=== PATIENT | male | born 1945 | race Caucasian/White ===

== ENCOUNTER 2023-12-04 20:51 | Inpatient (IN) | payer MEDICARE ==
[2023-12-04 22:10] VITALS: BMI 29.0
[2023-12-04] MEDS ORDERED: Ondansetron ODT 4 MG TAB PO PRN (23:30)
[2023-12-04] MEDS ORDERED: Electrolyte Replacement Protocol 1 EACH FS SCH (23:30)
[2023-12-04] MEDS ORDERED: Lorazepam 2 MG/ML VIAL IM PRN (23:30)
[2023-12-04] MEDS ORDERED: Ondansetron PF 4 MG/2 ML Vial IVP PRN (23:32)
[2023-12-04] MEDS ORDERED: Acetaminophen 650 MG Suppository PR PRN (23:32)
[2023-12-05 00:20] LABS: Amphetamine Not Detected (NotDetected); Barbiturates Screen Not Detected (NotDetected); Benzodiazepine Screen Not Detected (NotDetected); Cocaine Metabolite Screen Not Detected (NotDetected); Methadone Not Detected (NotDetected); Methamphetamine Not Detected (NotDetected); Opiate Screen Not Detected (NotDetected); Oxycodone Screen Not Detected (NotDetected); Phencyclidine (PCP) Not Detected (NotDetected); THC/Cannabinoid Screen Not Detected (NotDetected); Tricyclic Screen Not Detected (NotDetected)
[2023-12-05] MEDS: Thiamine HCl 200 MG/2 ML VIAL SLOW IVP SCH (00:25)
[2023-12-05] MEDS: Lorazepam 1 MG TAB PO SCH (00:25)
[2023-12-05] MEDS: Multivitamins, Adult 10 ML, Folic Acid 1 MG, Thiamine HCl 100 MG, Admixture Fee 1 EACH ... IV SCH (00:42)
[2023-12-05 03:02] LABS: ALT (SGPT) 79 U/L (8-55); AST (SGOT) 116 U/L (5-34); Albumin 3.4 g/dL (3.4-4.8); Alkaline Phosphatase 91 U/L (40-110); Anion Gap 15 mmol/L (10-20); BUN (Urea Nitrogen) 8 mg/dL (8.4-25.7); Bilirubin, Total 1.6 mg/dL (0.2-1.2); Calc. Creatinine Clearance 79 mL/min (70-130); Calcium 7.9 mg/dL (7.8-10.44); Carbon Dioxide 22 mmol/L (23-31); Chloride 106 mmol/L (98-107); Estimated GFR 77; Glucose 92 mg/dL (83-110); Potassium 4.1 mmol/L (3.5-5.1); Protein, Total 6.4 g/dL (5.8-8.1); Sodium 139 mmol/L (136-145)
[2023-12-05 03:04] LABS: Troponin I 0.019 ng/mL (< 0.028)
[2023-12-05 03:18] LABS: #Basophils 0.03 10x3/uL (0.0-0.2); #Eosinphils Less than 0.03 10x3/uL (0.0-0.7); %Basophils 0.7 % (0.0-1.0); %Lymphocytes 21.4 % (21.0-51.0); %Neutrophils 65.7 % (42.0-75.0); Hematocrit 39.2 % (42.0-52.0); Hemoglobin 13.9 g/dL (14.0-18.0); Mean Corpuscular HGB CONC 35.5 g/dL (32.0-36.0); Mean Corpuscular Hemoglobin 39.8 pg (27.0-31.0); Mean Corpuscular Volume 112.3 fL (78.0-98.0); Mean Platelet Volume 9.1 fL (7.4-10.4); Platelet Count 159 10x3/uL (130-400); RBC Distribution Width 14.4 % (11.5-14.5); Red Blood Cell (RBC) Count 3.49 mill/uL (4.70-6.10)
[2023-12-05 03:21] LABS: Macrocytosis SLIGHT = 6-15 cells HPF (0-5); Platelet Adequacy Comment Platelets Normal
[2023-12-05 03:23] LABS: HBCM Index 0.07 S/CO (0-0.79); HBsAg Index 0.48 S/CO (0-0.99); Hep A IgM AB NONREACTIVE (NonReactive); Hep A IgM S/CO 0.15 S/CO (0-0.79); Hep B Surf Ag NONREACTIVE S/CO (NonReactive); Hep C IgG Ab NONREACTIVE S/CO (NonReactive); Hep C Index 0.12 S/CO (0-0.79); Hepatitis B Core IgM Abs NONREACTIVE S/CO (NonReactive)
[2023-12-05] MEDS: Metoprolol Tartrate 5 MG (5 mL) VIAL IVP PRN (05:15)
[2023-12-05] MEDS: Folic Acid 1 MG TAB PO SCH (09:48)
[2023-12-05] MEDS: Enoxaparin 40 MG (0.4 mL) SYRINGE SC SCH (09:48)
[2023-12-05] MEDS: Multivit, Therapeutic 1 TAB PO SCH (09:48)
[2023-12-05] MEDS: Acetaminophen 325 MG TAB PO PRN (09:55)
[2023-12-05] MEDS ORDERED: Iopamidol-370 76% 500 ML MDV (1 ML CHARGE) ONE (12:03)
[2023-12-05 13:42] VITALS: BMI 29.0
[2023-12-05] MEDS: Lorazepam 1 MG TAB PO PRN (16:07)
[2023-12-05] MEDS: Metoprolol Tartrate 25 MG TAB PO SCH (22:57)
[2023-12-06 04:56] LABS: ALT (SGPT) 60 U/L (8-55); AST (SGOT) 72 U/L (5-34); Albumin 3.2 g/dL (3.4-4.8); Alkaline Phosphatase 88 U/L (40-110); Anion Gap 12 mmol/L (10-20); BUN (Urea Nitrogen) 7 mg/dL (8.4-25.7); Bilirubin, Total 2.5 mg/dL (0.2-1.2); Calc. Creatinine Clearance 93 mL/min (70-130); Calcium 8.1 mg/dL (7.8-10.44); Carbon Dioxide 27 mmol/L (23-31); Chloride 101 mmol/L (98-107); Estimated GFR 89; Globulin 2.7 g/dL (2.4-3.5); Glucose 84 mg/dL (83-110); Potassium 3.5 mmol/L (3.5-5.1); Protein, Total 5.9 g/dL (5.8-8.1); Sodium 136 mmol/L (136-145)
[2023-12-06 05:24] LABS: #Basophils Less than 0.03 10x3/uL (0.0-0.2); #Eosinphils Less than 0.03 10x3/uL (0.0-0.7); %Basophils 0.4 % (0.0-1.0); %Lymphocytes 23.1 % (21.0-51.0); %Monocytes 14.9 % (0.0-10.0); %Neutrophils 61.4 % (42.0-75.0); Hemoglobin 13.1 g/dL (14.0-18.0); Mean Corpuscular HGB CONC 35.4 g/dL (32.0-36.0); Mean Corpuscular Hemoglobin 40.4 pg (27.0-31.0); Mean Corpuscular Volume 114.2 fL (78.0-98.0); Mean Platelet Volume 10.3 fL (7.4-10.4); Platelet Count 158 10x3/uL (130-400); RBC Distribution Width 14.3 % (11.5-14.5); Red Blood Cell (RBC) Count 3.24 mill/uL (4.70-6.10)
[2023-12-06 06:38] LABS: Anisocytosis MODERATE=16-30 cells HPF (0-5); Macrocytosis MARKED = >30 cells HPF (0-5); Platelet Adequacy Comment Platelets Normal
[2023-12-06] MEDS: Potassium Chloride 20 MEQ TAB PO SCH (08:40)
[2023-12-06] MEDS: Lorazepam 1 MG TAB PO PRN (08:41)
[2023-12-06] MEDS: dilTIAZem 125 MG in Sodium Chloride 0.9% 100 ML IVPB SCH (11:30)
[2023-12-06] MEDS: Lorazepam 0.5 MG TAB PO SCH (22:36)
[2023-12-07] MEDS: Lorazepam 1 MG TAB PO PRN (00:48)
[2023-12-07 05:59] LABS: #Basophils 0.03 10x3/uL (0.0-0.2); #Eosinphils Less than 0.03 10x3/uL (0.0-0.7); %Basophils 0.5 % (0.0-1.0); %Lymphocytes 13.4 % (21.0-51.0); %Neutrophils 74.8 % (42.0-75.0); Hematocrit 38.5 % (42.0-52.0); Hemoglobin 13.7 g/dL (14.0-18.0); Mean Corpuscular HGB CONC 35.6 g/dL (32.0-36.0); Mean Corpuscular Hemoglobin 39.4 pg (27.0-31.0); Mean Corpuscular Volume 110.6 fL (78.0-98.0); Mean Platelet Volume 10.6 fL (7.4-10.4); Platelet Count 150 10x3/uL (130-400); RBC Distribution Width 13.7 % (11.5-14.5); Red Blood Cell (RBC) Count 3.48 mill/uL (4.70-6.10)
[2023-12-07 06:30] LABS: Macrocytosis SLIGHT = 6-15 cells HPF (0-5); Platelet Adequacy Comment Platelets Normal
[2023-12-07 06:46] LABS: ALT (SGPT) 50 U/L (8-55); AST (SGOT) 49 U/L (5-34); Albumin 3.3 g/dL (3.4-4.8); Alkaline Phosphatase 86 U/L (40-110); Anion Gap 13 mmol/L (10-20); BUN (Urea Nitrogen) 6 mg/dL (8.4-25.7); Bilirubin, Total 2.5 mg/dL (0.2-1.2); Calc. Creatinine Clearance 105 mL/min (70-130); Calcium 8.1 mg/dL (7.8-10.44); Carbon Dioxide 24 mmol/L (23-31); Chloride 99 mmol/L (98-107); Estimated GFR 92; Globulin 2.8 g/dL (2.4-3.5); Glucose 92 mg/dL (83-110); Potassium 3.6 mmol/L (3.5-5.1); Protein, Total 6.1 g/dL (5.8-8.1); Sodium 132 mmol/L (136-145)
[2023-12-07] MEDS: Thiamine 100 MG TAB PO SCH (21:41)
[2023-12-07] MEDS ORDERED: Lorazepam 0.5 MG TAB PO PRN (23:30)
[2023-12-08 04:17] LABS: #Basophils 0.04 10x3/uL (0.0-0.2); %Basophils 0.5 % (0.0-1.0); %Eosinophils 2.6 % (0.0-10.0); %Monocytes 9.5 % (0.0-10.0); Hematocrit 39.8 % (42.0-52.0); Hemoglobin 14.6 g/dL (14.0-18.0); Mean Corpuscular HGB CONC 36.7 g/dL (32.0-36.0); Mean Corpuscular Hemoglobin 39.9 pg (27.0-31.0); Mean Corpuscular Volume 108.7 fL (78.0-98.0); Mean Platelet Volume 10.3 fL (7.4-10.4); Platelet Count 154 10x3/uL (130-400); RBC Distribution Width 13.2 % (11.5-14.5); Red Blood Cell (RBC) Count 3.66 mill/uL (4.70-6.10)
[2023-12-08 04:25] LABS: ALT (SGPT) 43 U/L (8-55); AST (SGOT) 41 U/L (5-34); Albumin 3.2 g/dL (3.4-4.8); Alkaline Phosphatase 92 U/L (40-110); Anion Gap 13 mmol/L (10-20); BUN (Urea Nitrogen) 8 mg/dL (8.4-25.7); Bilirubin, Total 2.3 mg/dL (0.2-1.2); Calc. Creatinine Clearance 95 mL/min (70-130); Calcium 8.3 mg/dL (7.8-10.44); Carbon Dioxide 25 mmol/L (23-31); Chloride 100 mmol/L (98-107); Estimated GFR 90; Glucose 81 mg/dL (83-110); Potassium 3.5 mmol/L (3.5-5.1); Protein, Total 6.2 g/dL (5.8-8.1); Sodium 134 mmol/L (136-145)
[2023-12-08] MEDS: Potassium Chloride 20 MEQ in Premix 1 BAG IVPB SCH (08:45)
[2023-12-08] MEDS ORDERED: fentaNYL 50 mcg/mL 1 mL Vial ONE (14:19)
[2023-12-08] MEDS ORDERED: PROPOFOL 200 MG/20 ML VIAL ONE (14:26)
[2023-12-08] MEDS: Flecainide 50 MG TAB PO SCH (20:59)
[2023-12-09 04:41] LABS: #Basophils 0.04 10x3/uL (0.0-0.2); #Eosinphils Less than 0.03 10x3/uL (0.0-0.7); %Basophils 0.5 % (0.0-1.0); %Lymphocytes 12.9 % (21.0-51.0); %Monocytes 10.3 % (0.0-10.0); Hematocrit 36.3 % (42.0-52.0); Hemoglobin 12.9 g/dL (14.0-18.0); Mean Corpuscular HGB CONC 35.5 g/dL (32.0-36.0); Mean Corpuscular Hemoglobin 39.9 pg (27.0-31.0); Mean Corpuscular Volume 112.4 fL (78.0-98.0); Mean Platelet Volume 10.6 fL (7.4-10.4); Platelet Count 163 10x3/uL (130-400); RBC Distribution Width 13.6 % (11.5-14.5); Red Blood Cell (RBC) Count 3.23 mill/uL (4.70-6.10)
[2023-12-09 05:04] LABS: ALT (SGPT) 35 U/L (8-55); AST (SGOT) 34 U/L (5-34); Alkaline Phosphatase 84 U/L (40-110); Anion Gap 12 mmol/L (10-20); BUN (Urea Nitrogen) 10 mg/dL (8.4-25.7); Bilirubin, Total 2.1 mg/dL (0.2-1.2); Calc. Creatinine Clearance 89 mL/min (70-130); Calcium 8.3 mg/dL (7.8-10.44); Carbon Dioxide 24 mmol/L (23-31); Chloride 100 mmol/L (98-107); Estimated GFR 88; Globulin 2.8 g/dL (2.4-3.5); Glucose 84 mg/dL (83-110); Potassium 3.7 mmol/L (3.5-5.1); Protein, Total 5.8 g/dL (5.8-8.1); Sodium 132 mmol/L (136-145)
[2023-12-09 05:38] LABS: Macrocytosis SLIGHT = 6-15 cells HPF (0-5); Platelet Adequacy Comment Platelets Normal
[2023-12-09 11:20] VITALS: BP 167/92; TEMP 97.8
== END 2023-12-09 13:45 | disposition home or self-care (01) | DRG 897 ==
LOC: MSONC 21:41 → 2NO 21:50 → OBSVTOIN 23:32
PROVIDERS: ADMIT Student in an Organized Health Care Education/Training Program; ATTEND Internal Medicine
PROC: B24BZZ4 Ultrasonography of Heart with Aorta, Transesophageal (ICD-10-PCS; principal; 2023-12-08)
PROC: 5A2204Z Restoration of Cardiac Rhythm, Single (ICD-10-PCS; 2023-12-08)
DX: F10.229 Alcohol dependence with intoxication, unspecified (principal); I48.92 Unspecified atrial flutter; E87.1 Hypo-osmolality and hyponatremia; K70.10 Alcoholic hepatitis without ascites; R63.0 Anorexia; I44.0 Atrioventricular block, first degree; E88.09 Other disorders of plasma-protein metabolism, not elsewhere classified; I10 Essential (primary) hypertension; Z79.899 Other long term (current) drug therapy; Z98.890 Other specified postprocedural states; Z68.29 Body mass index [BMI] 29.0-29.9, adult
CPT/HCPCS: 36415; 71275; 80053; 80074; 80306; 84484; 85025; 92960; 93005; 93010; 93306; 93312; J1650; J2704; J3010; J3411; J3480; J3490; J7042; Q9967